=== PATIENT | male | born 1950 | race Hispanic/Latino ===

== ENCOUNTER → 2018-09-21 | Day surgery (SDC) | payer MEDICARE, OTHER ==
[2018-09-14 11:18] LABS: BASOPHILS # (AUTO) 0.1 (0.0-0.1); BASOPHILS % 0.4 % (0.0-1.0); EOSINOPHILS # (AUTO) 0.1 (0.0-0.4); EOSINOPHILS % 0.5 % (0.0-6.0); HEMATOCRIT 45.3 % (38.2-49.6); LYMPHOCYTES # (AUTO) 2.5 (1.0-3.2); LYMPHOCYTES % 21.3 % (18.0-39.1); MEAN CORPUSCULAR HEMOGLOBIN 31.6 pg (28-32); MEAN CORPUSCULAR HGB CONC 33.1 g/dL (31-35); MEAN CORPUSCULAR VOLUME 95.4 fL (81-99); MONOCYTES % 8.7 % (4.4-11.3); NEUTROPHILS # (AUTO) 8.1 (2.1-6.9); NEUTROPHILS % 68.4 % (38.7-80.0); PLATELET COUNT 285 x10e3/uL (140-360); RED BLOOD COUNT 4.75 x10e6/uL (4.3-5.7)
[2018-09-14 11:40] LABS: ALANINE AMINOTRANSFERASE 14 IU/L (0-55); ALBUMIN 3.9 g/dL (3.5-5.0); ALKALINE PHOSPHATASE 80 IU/L (40-150); ANION GAP 14.7 mmol/L (8-16); BLOOD UREA NITROGEN 15 mg/dL (7-26); BUN/CREATININE RATIO 17 (6-25); CALCIUM 9.5 mg/dL (8.4-10.2); CARBON DIOXIDE 23 mmol/L (22-29); CHLORIDE 105 mmol/L (98-107); CREATININE, SERUM 0.88 mg/dL (0.72-1.25); EST GLOMERULAR FILTRATION RATE > 60 ML/MIN (60-); GLUCOSE 90 mg/dL (74-118); POTASSIUM 4.7 mmol/L (3.5-5.1); SODIUM 138 mmol/L (136-145)
--- NOTE | 2018-09-14 12:02 | Diagnostic Imaging Report ---
EXAMINATION: PA and lateral views of the chest. COMPARISON: None CLINICAL HISTORY: Preoperative study for circumcision DISCUSSION: Lungs are well-inflated and without consolidation, pleural effusion, or pneumothorax. Tortuous thoracic aorta with atherosclerotic calcification. Normal heart size. No pulmonary edema. No acute osseous abnormality. IMPRESSION: No acute cardiopulmonary abnormalities. Signed by: Dr. Raffy King M.D. on 09/14/2018 11:59 AM
[~2018-09-21] MED LIST: BUPIVACAINE 0.25% 30ML SDV INJ ONE; CEFAZOLIN SOD 1 GM/D5W 50ML 50 ML IV ONE; DEXAMETHASONE SOD PHOS INJ 4 MG/ML VIAL ONE; FENTANYL CITRATE/PF 100MCG/2 ML INJ ONE; GABAPENTIN400 MG PO; KETOROLAC TROMETHAMINE 30 MG/ML VIAL ONE; LIDOCAINE HCL 2% LOCAL INJ 5 ML SDV VIAL INJ ONE; MIDAZOLAM HCL 2 MG/2 ML VIAL ONE; ONDANSETRON HCL INJ 2 MG/ML VIAL ONE; PROPOFOL IV EMULSION 10 MG/ML 20 ML VIAL ONE; SEVOFLURANE INHAL SOLN 250 ML PEN BTL ONE
[2018-09-21 10:40] VITALS: BP 121/76
--- OUTSIDE RECORDS SUMMARY | 2018-09-21 10:53 | XMS REPORT ---
Author Author [facility] Address Unknown Phone Unavailable Care Team Providers Care Fiberglass Finisher Name Role Phone ALIYAH TEIXEIRA Unavailable Unavailable Problems This patient has no known problems. Allergies, Adverse Reactions, Alerts This patient has no known allergies or adverse reactions. Medications This patient has no known medications. Results Test Description Test Time Test Comments Text Results Atomic Results Result Comments CHEST 2 VIEWS 2018-09-14 11:58:00 [facility] [address] [address] Patient Name: ELROY LÓPEZ MR #: [id number] : 1950 Age/Sex: 68/M Req #: [id number] Adm Physician: Ordered by: ALIYAH TEIXEIRA MD Report #: [id number] Location: OR Room/Bed: Procedure: [id number] DX/CHEST 2 VIEWS Exam Date: Exam Time: REPORT STATUS: Signed EXAMINATION: PA and lateral views of the chest. COMPARISON: None CLINICAL HISTORY: Preoperative study for circumcision DISCUSSION: Lungs are well-inflated and without consolidation, pleural effusion, or pneumothorax. Tortuous thoracic aorta with atherosclerotic calcification. Normal heart size. No pulmonary edema. No acute osseous abnormality. IMPRESSION: No acute cardiopulmonary abnormalities. Signed by: Dr. Uriah Kohler M.D. on 09/14/2018 11:59 AM Dictated By: URIAH KOHLER MD 115 Transcribed By: CATALINA on 09/14/181158 COPY TO: ALIYAH TEIXEIRA MD
--- NOTE | 2018-09-21 14:15 | Operative Report ---
DATE OF PROCEDURE: September 21, 2018 PREOPERATIVE DIAGNOSES 1. Chronic balanitis. 2. Balanitis xerotica obliterans. POSTOPERATIVE DIAGNOSES 1. Chronic balanitis. 2. Balanitis xerotica obliterans. OPERATION PERFORMED: Circumcision. ANESTHESIA: Anesthesiology staff. ANESTHESIA: General with local block. BRIEF HISTORY: A 68-year-old male who has been followed by me for balanitis had become very chronic with cracks on the prepuce, inability to pull the skin over the head glans penis without pain. I have been treating him with creams. Finally, since the situation was not improving, decision to do a circumcision was made. We discussed complications of infection and bleeding. Will continue with the operation as the only viable option at this time having failed topical therapy. PROCEDURE: With the patient under satisfactory general anesthesia, the genitalia was shaved with zak, prepped with Betadine soap and solution and draped in the usual manner. At this point, local block was done by injecting 10 mL of 0.25% Marcaine without epinephrine at the penoscrotal junction, and 10 mL dorsally right underneath the symphysis pubis to block the dorsal neurovascular bundle. Once that was done, then the circumcision was made in the usual manner by incising the skin 1 cm behind the coronal sulcus, and then excising the skin and the shaft at the level of the demarcation of the balanitis. Once that was done, the bleeding points were electrocoagulated. The skin was removed and sent in for pathological specimen. The skin edges were approximated using 4-0 chromic catgut. Vaseline gauze, dry gauze and Coban tape was then applied to the skin as a dressing. At this point, the patient was taken to the recovery room in satisfactory condition. DISCHARGE INSTRUCTIONS: The dressings should be coming out tomorrow afternoon. I have discussed that with the family. He has pain medication that I provided, tramadol 50 to take as needed for pain and Augmentin to take 1 twice a day. He will be seen in my office within 2 to 3 weeks. He is to call my office should there be a problem. No sexual intercourse until we discuss the findings and evaluation in followup. Job#: [id number] [place]
== END | disposition home or self-care (01) ==
LOC: OR 10:50
PROVIDERS: ATTEND Urology
DX: N48.0 Leukoplakia of penis (principal); N47.1 Phimosis; F17.210 Nicotine dependence, cigarettes, uncomplicated; Z01.810 Encounter for preprocedural cardiovascular examination; Z01.812 Encounter for preprocedural laboratory examination; Z01.818 Encounter for other preprocedural examination
CPT/HCPCS: 36415; 71046; 80053; 85025; 87086; 87186; 88304; 93005; J0690; J1100; J1885; J2001; J2250; J2405